=== PATIENT | male | born 2005 | race Caucasian/White ===

== ENCOUNTER 2024-08-11 10:33 | Emergency (ER) | payer SELFPAY ==
--- NOTE | 2024-08-11 10:40 | ED_ITS ---
[facility] - General Adult General Chief complaint: Upper Respiratory Infection Stated complaint: Cough Source: patient Mode of arrival: ambulatory Limitations: no limitations History of Present Illness HPI narrative: patient is a pleasant 18-year-old male presenting with complaint of upper respiratory infection. Symptoms reported include cough, postnasal drainage, muffled hearing. Symptoms began approximately 10 days ago. He reports his girlfriend has same symptoms. The cough is worse when supine and 1st thing in the morning. He denies any fevers, chills, sweats, or any other constitutional symptoms. No treatment initiated prior to arrival. No additional complaints. Related Data Allergies Allergy/AdvReac Type Severity Reaction Status Date / Time No Known Allergies Allergy Verified 08/11/24 10:34 Review of Systems Review of Systems: CONSTITUTIONAL: Denies body aches, fever, chills, or sweats. EYES: Denies visual changes, redness, or discharge. ENT: Denies rhinorrhea, congestion, sore throat, or otalgia. CARDIOVASCULAR: Denies chest pain, palpitations, or edema. RESPIRATORY: Denies dyspnea. GASTROINTESTINAL: Denies abdominal pain, nausea, vomiting, or diarrhea. GENITOURINARY: Denies dysuria or hematuria. SKIN: Denies rash, itching, or wounds. MUSCULOSKELETAL: Denies back pain, joint pain, or myalgia. NEUROLOGIC: Denies headache, numbness, tingling, or weakness. PSYCH: Denies depression or anxiety. All systems reviewed & are unremarkable except as noted in HPI and below Exam Narrative: GENERAL: Well-appearing, well-nourished, and in no acute distress. HEAD: Normocephalic, atraumatic. EYES: EOMI. No redness or drainage. Conjunctivae normal. ENT: Mucous membranes pink and moist. Nares clear. No rhinorrhea. TMs normal bilaterally. Throat normal. Uvula midline. no mastoid tenderness. NECK: Normal AROM. Supple. No lymphadenopathy. CHEST: No respiratory distress. Clear to auscultation. HEART: Tachycardic, rate of 100. Regular rhythm. No murmur appreciated. Normal peripheral pulses. MUSCULOSKELETAL: No bony tenderness. EXTREMITIES: Normal range of motion. No edema. SKIN: Warm, dry, no rash. Capillary refill normal. Normal skin turgor. NEURO: No focal deficits. Alert and oriented x3. Gait steady. PSYCH: Normal affect. No signs of depression or anxiety. HENMT: Ears: external ears normal, TM's normal bilaterally and EAC's normal Face and sinus: normal facial exam and sinuses nontender Other: Moderate amount of clear postnasal drainage. Resp: Other: No cough noted during the time I spent in the exam room. Course Course Emergency Course: Please be advised this is a medical document. It is intended for [id number]-to-[id number] communication. It is written in medical language and may contain unfamiliar abbreviations or verbiage. Medical documents are intended to carry relevant information, facts as evident, and the clinical opinion of the practitioner at the time of the encounter. This dictation may have been done utilizing a voice recognition system. Attempts have been made to correct errors. However, there may be uncorrected grammatical, spelling, and recognition errors present. Level of Care: Express Care Visit Vital Signs Vital signs: Vital Signs Temperature 98.3 F 08/11/24 10:43 Pulse Rate 101 H 08/11/24 10:43 Respiratory Rate 08/11/24 10:43 Blood Pressure 142/71 H 08/11/24 10:43 Pulse Oximetry 100 08/11/24 10:43 Oxygen Delivery Room Air 08/11/24 10:43 Temperature 98.3 F 08/11/24 10:43 Pulse Rate 101 H 08/11/24 10:43 Respiratory Rate 08/11/24 10:43 Blood Pressure 142/71 H 08/11/24 10:43 Pulse Oximetry 100 08/11/24 10:43 Oxygen Delivery Room Air 08/11/24 10:43 Medical Decision Making Vital Signs Vital Signs: Vital Signs Temperature 98.3 F 08/11/24 10:43 Pulse Rate 101 H 08/11/24 10:43 Respiratory Rate 20 08/11/24 10:43 Blood Pressure 142/71 H 08/11/24 10:43 Pulse Oximetry 100 08/11/24 10:43 Oxygen Delivery Room Air 08/11/24 10:43 Temperature 98.3 F 08/11/24 10:43 Pulse Rate 101 H 08/11/24 10:43 Respiratory Rate 20 08/11/24 10:43 Blood Pressure 142/71 H 08/11/24 10:43 Pulse Oximetry 100 08/11/24 10:43 Oxygen Delivery Room Air 08/11/24 10:43 Discharge Plan Discharge Clinical Impression: Elevated blood pressure reading in office with white coat syndrome, without diagnosis of hypertension Upper respiratory infection Qualifiers: URI type: acute nasopharyngitis (common cold) Qualified Code(s): J00 - Acute nasopharyngitis [common cold] Cough Qualifiers: Cough type: acute Qualified Code(s): R05.1 - Acute cough Patient Disposition: Home Condition: Stable Instructions: Antibiotic Form, Viral Syndrome (ED) Additional Instructions: Purchase and begin using Flonase nasal spray per the package instructions. Your symptoms are likely due to a viral illness, which is not treated with antibiotics. Virus symptoms can last for up to 10-14 days--with the cough lingering on much longer. Take tylenol/ibuprofen per the package instructions for pain or fever. Rest and stay hydrated. Follow up with your PCPif symptoms are not improving, or sooner if symptoms are worsening. Go straight to ER should your symptoms become worse or should any new symptoms develop Patient Language: [place] Prescriptions: New prednisone 20 mg tablet 60 mg PO DAILY Qty: 15 0RF Follow-up/Referrals: PHYSICIAN,MARKETING AUTOMATION MANAGER [Primary Care Provider] - 08/11/24 Stand Alone Forms: Work/School Release IP Time of Disposition: 10:58
[2024-08-11 10:43] VITALS: BP 142/71; PULSE 101; RESP 20; TEMP 36.8; O2SAT 100
== END 2024-08-11 11:00 | disposition home or self-care (01) ==
PROVIDERS: Emergency Provider Registered Nurse
DX: J00 Acute nasopharyngitis [common cold] (principal); R05.1 Acute cough; R03.0 Elevated blood-pressure reading, without diagnosis of hypertension
CPT/HCPCS: 99203; G0463